=== PATIENT | female | born 1975 | race Asian ===

== ENCOUNTER 2024-07-15 01:34 | Inpatient (IN) | payer MEDICAID, SELFPAY ==
[2024-07-15] VITALS (32 sets, daily range): BP systolic 76–109; BP diastolic 43–78; PULSE 66–111; RESP 9–25; TEMP 36.7–37.1; O2SAT 94–100; BMI 19.2; BMI 20.3
--- NOTE | 2024-07-15 02:34 | XR_ITS ---
Examination: PA chest single view TECHNIQUE: Upright PA chest single view Exam date and time: 11/06/2023 at 0250 hours INDICATIONS: Shortness of breath weakness today. FINDINGS: Normal heart size. Lungs are clear The osseous structures are intact IMPRESSION: No active disease
[2024-07-15 03:19] LABS: Base Excess, Venous -12 (-3-3); O2 Saturation, Venous 69 % (96-97); PCO2, Venous 36 mmHg (36-56); PO2, Venous 42 mmHg (15-58); pH, Venous 7.21 (7.33-7.66)
[2024-07-15 03:27] LABS: Basophils % (Auto) 0 % (0-2.5); Eosinophils % (Auto) 0 % (0-10); Hematocrit 38.6 % (36.0-46.0); Hemoglobin 12.7 g/dL (12.0-16.0); Immature Granulocytes % (Auto) 1 % (0-0); Immature Granulocytes Auto 0.12 Thou/mm3 (0.00-0.00); Lymphocytes # (Auto) 0.7 Thou/mm3 (1.0-4.8); Lymphocytes % (Auto) 4 % (10-50); Mean Corpuscular HGB Conc 32.9 g/dl (31.0-37.0); Mean Corpuscular Hemoglobin 22.2 pg (25.0-35.0); Mean Corpuscular Volume 67 fL (80-100); Monocytes % (Auto) 5 % (0-12); Neutrophils # (Auto) 18.2 Thou/mm3 (1.8-7.7); Neutrophils % (Auto) 91 % (37-80); Nucleated Red Blood Cell % 0 /100 WBC (0); Platelet Count 155 Thou/mm3 (140-440); RDW Standard Deviation 34.8 fL (36.4-46.3); Red Blood Count 5.73 Miln/mm3 (4.00-5.20)
[2024-07-15 03:34] LABS: Collection Type, Urine Clean Catch
[2024-07-15 03:42] LABS: Beta Hydroxybutyrate 6.3 mmol/L (<0.6)
[2024-07-15 03:54] LABS: Partial Thromboplastin Time 25.1 Seconds (22.0-36.0); Prothrombin Time 10.7 Seconds (9.0-12.2)
[2024-07-15 03:56] LABS: HCG Qualitative,Urine Negative
[2024-07-15 03:59] LABS: Bilirubin,Urine Negative (Negative); Blood,Urine Negative (Negative); Clarity,Urine Clear (Clear/Hazy); Color,Urine Lt-Yellow (Lt Yel-Yel); Culture Indicated,Urine Not Indicated; Glucose, Urine 4+ (Negative); Hyaline Casts,Urine 1 /hpf (0-1); Ketones,Urine 4+ (Negative); Leukocyte Esterase,Urine Negative (Negative); Nitrite,Urine Negative (Negative); PH,Urine 5.5 (5.0-7.0); Protein,Urine Negative (Neg - Trace); RBC,Urine 4 /hpf (0-3); Specific Gravity,Urine 1.016 (1.001-1.035); Squamous Epithelial Cell,Urine 2 /hpf (0-5); Urobilinogen,Urine Negative mg/dL (0.0-1.0); WBC,Urine 1 /hpf (0-5)
[2024-07-15 04:12] LABS: Lactate (Lactic Acid) 4.1 mMol/L (0.4-2.0)
[2024-07-15 04:24] LABS: Alanine Aminotransferase 24 U/L (10-49); Albumin, Serum 4.6 gm/dL (3.5-5.0); Albumin/Globulin Ratio 1.3 (1.2-2.2); Alkaline Phosphatase 62 U/L (46-116); Anion Gap 23 (7-16); Aspartate Amino Transferase 45 U/L (0-34); BUN/Creatinine Ratio 17 Ratio (12-20); Bilirubin,Total 1.1 mg/dL (0.3-1.2); Blood Urea Nitrogen 24 mg/dL (9-23); Calcium 9.7 mg/dL (8.3-10.6); Calcium (Corrected) 9.7 mg/dL (8.5-10.1); Chloride 91 mMol/L (98-107); Creatinine (Component) 1.4 mg/dL (0.6-1.3); Estimated Creatinine Clearance 38.6 mL/min (>60); Globulin 3.6 gm/dL (2.3-3.5); Lipase 29 U/L (12-53); Magnesium 2.2 mg/dL (1.6-2.6); Osmolality,Calculated 276 (275-295); Phosphorous 5.3 mg/dL (2.4-5.1); Potassium 5.9 mMol/L (3.4-5.1); Procalcitonin 1.65 ng/ml (0.0-0.49); Sodium 126 mMol/L (136-145); Total Protein 8.2 gm/dL (5.7-8.2); Troponin I < 0.002 ng/mL (0.0-0.045); eGFR 46 See Note
[2024-07-15] MEDS: ONDANSETRON INJ 2 MG/ML INJ 2 ML 4 MG IV (04:25)
[2024-07-15] MEDS: RINGERS LACTATED 1000 ML 1,000 ML 999 ML IV ×2 (04:25→10:09)
[2024-07-15 04:27] LABS: Carbon Dioxide 11.8 mMol/L (20.0-31.0); Glucose 445 mg/dL (74-106)
[2024-07-15] MEDS: RINGERS LACTATED 1000 ML 1,000 ML 500 ML IV (04:36)
[2024-07-15 04:44] LABS: Path Review Blood Smear Sent to Pathologist
--- NOTE | 2024-07-15 05:15 | ESHP_ITS ---
Documentation for date of: 07/15/24 HPI History of Present Illness History of present illness: 49-year-old woman with past medical history of hyperlipidemia, insulin diabetes mellitus type 1, who came to the ED due to chief complaint of hyperglycemia, nausea and vomiting. History was taken per patient at the bedside due to patient speaks laotien. He stated that she has been having hyperglycemia the whole day at home and probably her insulin pump was not functioning well associated to nausea and headache . patient endorsed generalized body pain 10/10 otherwise denied chest pain, cough, fever, dysuria, chills or any other associated symptom different than the mentioned above ED course: Initial vitals: BP 96/58 HR 91 RR 16 afebrile SpO2 99% on room air Pertinent labs: Leukocytosis 20,000, bicarb 11.8 anion gap 23, BUN 24, creatinine 1.4, glucose 445, lactic acid 4.1, beta-hydroxybutyrate 6.3, Pro-Wilbert 1.65, UA positive for ketones and glucose 4+, VBG pH 7.21 pCO2 36 pO2 42 O2 sat 69% base excess -12 Imaging: Chest x-ray no active disease per my interpretation pending official reading At the ED the patient received: IV ED patient received 1.5 L IV fluids, ondansetron, and the patient will be admitted to the ICU for further management of DKA ROS: Headache, generalized bodyaches Past medical history: Hyperlipidemia, DKA type I Past surgical history: Family history: None relevant Social history: Denies cigarette smoking, alcohol use or recreational drugs Travel history: None Allergies: Oyster extract Medications: Atorvastatin, 12 mg p.o. q. night, insulin pump. Review of Systems Review of Systems Systems Reviewed: All systems reviewed, normal except as documented Exam Vital Signs Temp Pulse Resp BP Pulse Ox O2 Del Method 98.0 F 100 17 104/64 100 Room Air 07/15/24 02:40 07/15/24 04:41 07/15/24 04:41 07/15/24 04:41 07/15/24 04:41 07/15/24 04:41 Narrative Exam General: Looks uncomfortable, underweight, alert, interactive, wearing a compress on her head for headache HEENT: NC/AT, PERRL, EOMI, Good conjugate gaze, dry mucous membranes. Neck: Supple, No masses, No adenopathy, carotid pulse 2+ bilaterally without bruits, No JVD, normal range of motion. Chest: Symmetrical, atraumatic, and with equal expansion , Nontender on palpation no deformity and no crepitus. CVS: S1 and S2 present, tachycardic, no murmurs, rubs or gallops perceived during auscultation. Lungs: Normal respiratory effort, CTAB, no wheezing, rhonchi or rales perceived during auscultation, No intercostal or subcostal retraction. Abdomen : Soft, no tenderness to palpation, no guarding ,no rebound, insulin pump tubing in mid abdomen, +BS Extremities: No edema, warm well perfused, normal tone and ROM, strength and sensation intact, cap refill less than 2, +2 dp equal bilaterally, able to move all 4 extremities spontaneously. Skin: Intact, no rashes, no lesions, no erythema or jaundice noted Neuro: AOx4, no focal neurologic deficits noted, GCS 15 Psych: Appropriate mood and affect. Results: Labs 07/15/24 06:10 07/15/24 14:00 Labs: Short CBC 07/15/24 Range/Units 03:10 WBC 20.0 H (3.6-11.0) Thou/mm3 Hgb 12.7 (12.0-16.0) g/dL Hct 38.6 (36.0-46.0) % Plt Count 155 (140-440) Thou/mm3 BMP 07/15/24 03:10 Sodium 126 L Potassium 5.9 H Chloride 91 L Carbon Dioxide 11.8 L* BUN 24 H Creatinine 1.4 H Glucose 445 H* Calcium 9.7 Cardiac Enzymes 07/15/24 Range/Units 03:10 Troponin I < 0.002 (0.0-0.045) ng/mL Liver Function 07/15/24 Range/Units 03:10 Total Bilirubin 1.1 (0.3-1.2) mg/dL AST 45 H (0-34) U/L ALT 24 (10-49) U/L Alkaline Phosphatase 62 (46-116) U/L Albumin 4.6 (3.5-5.0) gm/dL Urine 07/15/24 Range/Units 03:28 Urine Color Lt-Yellow (Lt Yel-Yel) Urine Clarity Clear (Clear/Hazy) Urine pH 5.5 (5.0-7.0) Ur Specific [place] 1.016 (1.001-1.035) Urine Protein Negative (Neg - Trace) Urine Glucose (UA) 4+ A (Negative) ABG Interpretation ABG results: 07/15/24 03:10 VBG pH 7.21 L VBG pCO2 36 VBG pO2 42 VBG Base Excess -12 L Quality Measures Quality Measures VTE prophylaxis Medications Home Medications and Allergies Home Medications ?Medication ?Instructions ?Recorded ?Confirmed ?Type atorvastatin 20 mg tablet 20 mg PO HS HYPERLIPIDEMIA 0 11/06/23 07/15/24 History sitagliptin phosphate 50 mg tablet 50 mg PO QDAY 11/0507/15/24 History (Januvia) Allergies Allergy/AdvReac Type Severity Reaction Status Date / Time oyster extract Allergy Unknown Verified 07/15/24 01:43 Visit Medications Acetaminophen (Acetaminophen 325 Mg Tablet) 650 mg PO Q4HR PRN PRN Reason: PAIN SCALE 1-3 (mild Stop: 08/14/24 04:56 Dextrose (Dextrose 50%-Water Inj 50 Ml Syringe) 25 ml IV PRNMRX1 PRN PRN Reason: Blood Sugar - Low Lactated Ringer's (Lactated Ringers) 1,000 mls @ 500 mls/hr IV .Q2H ONE Stop: 07/15/24 06:28 Last Admin: 07/15/24 04:36 Dose: 500 mls/hr Potassium Chloride (Kcl Ivpb) 10 meq in 100 mls @ 100 mls/hr IV .Q1H PRN PRN Reason: IF POTASSIUM LESS THAN 3.3 Stop: 08/14/24 04:56 Magnesium Sulfate (Magnesium Sulfate Ivpb) 2 gm in 50 mls @ 25 mls/hr IV .Q2H PRN PRN Reason: PER DKA PROTOCOL Stop: 08/14/24 04:56 Insulin Human Regular 100 unit (/ IV Miscellaneous Supplies) 100 mls @ 5.08 mls/hr IV .[id number] PRN; Protocol PRN Reason: PER PROTOCOL Stop: 08/14/24 04:56 Dextrose/Lactated Ringer's (D5-Lr) 1,000 mls @ 250 mls/hr IV .Q4H PRN PRN Reason: PER PROTOCOL Stop: 08/14/24 04:56 Lactated Ringer's (Lactated Ringers) 1,000 mls @ 250 mls/hr IV .Q4H PRN PRN Reason: PER PROTOCOL Stop: 07/16/24 04:56 Potassium Chloride 20 meq/ (Lactated Ringer's) 1,010 mls @ 250 mls/hr IV .Q4H3M PRN PRN Reason: K LEVEL 3.3 TO 5.3mM/L Stop: 08/14/24 04:56 Potassium Chloride 40 meq/ (Lactated Ringer's) 1,020 mls @ 250 mls/hr IV .Q4H5M PRN PRN Reason: K LEVEL < 3.3 mM/L Stop: 08/14/24 04:56 Potassium Chloride 40 meq/ (Dextrose/Lactated Ringer's) 1,020 mls @ 250 mls/hr IV .Q4H5M PRN PRN Reason: K LEVEL < 3.3mM/L Stop: 08/14/24 04:56 Potassium Cl/Dextrose/Lact Ringer's (Kcl 20 Meq/L In D5-Lr) 20 meq in 1,000 mls @ 250 mls/hr IV .Q4H PRN PRN Reason: K LEVEL 3.3 TO 5.3 mM/L Stop: 08/14/24 04:56 Potassium Chloride (Kcl Ivpb) 10 meq in 100 mls @ 50 mls/hr IV PRN PRN PRN Reason: K LEVEL 3.3 to 5.3 & BG > 200 Stop: 08/14/24 04:56 Potassium Phosphate (Pot Phos 15 Mmol In Ns 250 Ml) 15 mmol in 250 mls @ 62.5 mls/hr IV PRN PRN PRN Reason: Phosphate <= 1mg/dL Stop: 08/14/24 04:56 Lactated Ringer's (Lactated Ringers) 1,000 mls @ 1,000 mls/hr IV Q1H ANDREW Stop: 07/15/24 07:14 Sodium Phosphate 15 mmol/ (Sodium Chloride) 255 mls @ 62.5 mls/hr IV .Q4H5M PRN PRN Reason: Phosphate <= 1mg/dL and K> than 5.3 Stop: 08/14/24 04:56 Sodium Bicarbonate (Sodium Bicarb Inj 8.4% Syr 50 Ml Syringe) 50 ml IV Q4HR PRN PRN Reason: For ph <= to 7.0 Stop: 08/14/24 04:56 Discontinued Medications Lactated Ringer's (Lactated Ringers) 1,000 mls @ 999 mls/hr IV .Q1H1M ONE Stop: 07/15/24 03:35 Last Admin: 07/15/24 04:25 Dose: 999 mls/hr Lactated Ringer's (Lactated Ringers) 500 mls @ 999 mls/hr IV .Q31M ONE Stop: 07/15/24 03:12 Last Admin: 07/15/24 04:30 Dose: Not Given Insulin Human Regular (Insulin Hum Regular 1 Unit/0.01 Ml (Per Unit)) 5.1 unit 0.1 unit/kg (5.1 unit) IV X1 ONE Stop: 07/15/24 04:58 Ondansetron HCl (Ondansetron Inj 2 Mg/Ml Inj 2 Ml) 4 mg IV X1 ONE; Protocol Stop: 07/15/24 02:45 Last Admin: 07/15/24 04:25 Dose: 4 mg Assessment & Plan Plan 49-year-old woman with past medical history of hyperlipidemia, insulin diabetes mellitus type 1, who came to the ED due to chief complaint of hyperglycemia, nausea and vomiting. Per patient at the bedside stated that she has been having hyperglycemia the whole day at home and probably her insulin pump was not functioning well. Patient endorsed generalized pain 10/10 and headache, otherwise denied chest pain, cough, fever, dysuria or any other associated symptom different than the mentioned above ED course: Initial vitals: BP 96/58 HR 91 RR 16 afebrile SpO2 99% on room air Pertinent labs: Leukocytosis 20,000, bicarb 11.8 anion gap 23, BUN 24, creatinine 1.4, glucose 445, lactic acid 4.1, beta-hydroxybutyrate 6.3, Pro-Wilbert 1.65, UA positive for ketones and glucose 4+, VBG pH 7.21 pCO2 36 pO2 42 O2 sat 69% base excess -12 Imaging: Chest x-ray no active disease per my interpretation pending official reading At the ED the patient received: IV ED patient received 1.5 L IV fluids, ondansetron, and the patient will be admitted to the ICU for further management of DKA [employer] DIRECTOR: Stable CVS: #Sinus tachycardia #Hypotension Secondary to dehydration in the setting of DKA, less likely sepsis due to patient denies fever, urinary symptoms shortness of breath or cough and has been afebrile MAP above 65 ? Per DKA protocol aggressive IV fluid resuscitation PULM: Stable GI: #Nausea Secondary to DKA ? Ondansetron IV every 6 hours as needed for nausea and vomiting #History of hyperlipidemia ? Continue home medications atorvastatin 20 g p.o. every night when reconciled RENAL: #Anion gap metabolic acidosis #JAMES #Electrolyte imbalance Secondary to DKA in the setting of insulin pump malfunction Prerenal azotemia secondary to dehydration in the setting of DKA Anion gap 23 VBG pH 7.21 pCO2 36 pO2 42 O2 sat 69% base excess -12 Creatinine 1.4 BUN 24 ? Insulin gtt. per DKA protocol ? IV fluids per DKA protocol ? Strict ins and outs ? Avoid nephrotoxic drugs ? Renally dose medications ? Follow-up Renal panel #Lactic acidosis Most likely secondary to DKA Lactic acid 4.1 ? IV fluids per DKA protocol ? Trend lactic acid ENDO: #DKA #Diabetes mellitus type 1 Patient has been endorsed that she was hyperglycemic in the whole day and that probably her insulin pump was not working properly Blood sugars 445 BHB 6.3, Anion gap 23 VBGpH 7.21 pCO2 36 pO2 42 O2 sat 69% base excess -12 At the ED patient received 1.5 L bolus ? Insulin gtt. per DKA protocol ? IV fluids per DKA protocol ? Renal panel every 4 hours per DKA protocol HEME/ONC: #Leukocytosis Most likely reactive in the setting of DKA ? Follow-up CBC and CMP ? Blood cultures pending ID: Stable MSK: Stable SKIN: Stable FEN: N.p.o. Lines: Peripheral DVT prophylaxis: Heparin GI prophylaxis: None CODE STATUS: Full code Patient discussed with my attending Dr Matthew Cortes MD PGY-3 Disclaimer: Despite multiple revisions, due to the dictation software being used, the document bellow may not be free of grammatical errors including phonetic/typographic errors. However, this does not deter from our commitment to providing health care in the patient's best interest in mind. Attending Provider Attestation/Addendum I have examined the patient, reviewed labs and imaging findings, discussed the case with the resident(s), and reviewed entered orders. I agree with the plan of care as outlined in this note, with these additional summaries/recommendations: 49-year-old female with past medical history of diabetes presents to the ED with chief complaint of nausea vomiting and hyperglycemia found to have DKA. Patient admitted to ICU for further management. Mati Castro MD
[2024-07-15] MEDS: INSULIN REG 100 UNITS/100 ML 100 UNIT in PRE-MIXED 1 BAG 5.08 UNIT IV (05:25)
[2024-07-15] MEDS: INSULIN HUM REGULAR 1 UNIT/0.01 ML (PER UNIT) 5.1 UNIT IV (05:27)
[2024-07-15] MEDS: HYDROcodone/APAP 5/325 TABLET 1 TAB PO (05:37)
[2024-07-15] MEDS: RINGERS LACTATED 1000 ML 1,000 ML IV ×2 (05:41→07:31)
[2024-07-15 06:16] LABS: Reflex Lactate? Y
--- NOTE | 2024-07-15 06:16 | EDNOTE_ITS ---
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 Some CP that resolved prior to arrival in ED. No SOB or URI symptoms. No fevers/chills. 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,cont #1 ea 11/07/23 (FreeStyle Romi 3 [place]) insulin glargine 100 unit/mL (3 10 unit (0.1 mL) subcu t QPM #15 mL 11/08/23 mL) subcutaneous pen (Lantus Solostar U-100 Insulin) insulin lispro 100 unit/mL 5 unit (0.05 mL) subcut TID WM 30 11/08/23 subcutaneous pen (Humalog KwikPen days #15 mL (U-100) Insulin) pen needle, diabetic, safety 32 #100 ea 11/08/23 gauge x 5/32 Allergies Allergy/AdvReac Type Severity Reaction Status Date / Time oyster extract Allergy Unknown Verified 07/15/24 01:43 Review of Systems Review of Systems Systems Reviewed: All systems reviewed, normal except as documented Constitutional Constitutional: Reports system reviewed and no additional complaints, except as documented, Reports as per HPI, Denies fever(s), Denies headache(s) and Reports weakness ENT Ears, Nose, Mouth, and Throat: Denies disequilibrium and Denies headache(s) Cardiovascular Cardiovascular: Reports system reviewed and no additional complaints, except as documented, Denies chest pain and Denies dyspnea Respiratory Respiratory: Reports system reviewed and no additional complaints, except as documented, Denies cough and Denies dyspnea Gastrointestinal Gastrointestinal: Reports system reviewed and no additional complaints, except as documented, Reports as per HPI, Denies abdominal pain, Reports nausea and Reports vomiting Neurologic Neurologic: Reports system reviewed and no additional complaints, except as documented, Denies confusion, Denies disequilibrium, Denies headache(s) and Reports weakness Psychiatric Psychiatric: Denies confusion Past Medical History Past Medical History CARDIAC: Positive Hypercholesterolemia; Negative Congestive Heart Failure RESPIRATORY: Negative Chronic Obstructive Pulmonary Disease (COPD) GENITOURINARY: Negative Renal Disease ENDOCRINE: Positive Diabetes Mellitus Type 1; Negative Diabetes Mellitus Type 2 (dm TYPE1) Social History SMOKING STATUS: Never smoker ED Exam General Limitations: Present no limitations General appearance: Present alert and in no apparent distress Head Head exam: Present atraumatic Eye Eye exam: Present normal appearance, PERRL and EOMI ENT ENT exam: Present normal exam, normal oropharynx and mucous membranes moist Neck Neck exam: Present normal inspection, full ROM and trachea midline Chest Chest inspection: Present normal inspection and symmetric chest wall rise Respiratory Respiratory exam: Present normal lung sounds bilaterally Cardiovascular Cardiovascular exam: Present regular rate, normal rhythm and normal heart sounds Abdominal Exam Abdominal exam: Present soft and normal bowel sounds Extremities Exam Extremities exam: Present normal inspection and full ROM Back Exam Back exam: Present normal inspection and full ROM Neurological Exam Neurological exam: Present alert, oriented X3 and CN II-XII intact Psychiatric Psychiatric exam: Present normal affect and normal mood Skin Skin exam: Present warm, dry, intact and normal color Course Quality Measures none Orders Category Date Time Status Blood glucose [Bedside Blood Glucose] NOW Care 07/15/24 01:46 Active COVID-19 Screening Questionnaire NOW Care 07/15/24 04:32 Active Decision to Admit X1 Care 07/15/24 04:32 Completed EKG (ED ONLY) *Do not use* NOW Care 07/15/24 02:34 Completed Insert IV NOW Care 07/15/24 02:35 Active EKG (ED Only) Stat Exams 07/15/24 02:34 Ordered XR chest 1V portable Stat Exams 07/15/24 02:34 Taken Beta Hydroxybutyrate Stat Lab 07/15/24 03:10 Completed Blood Culture (Lab) Stat Lab 07/15/24 03:10 Received CBC Stat Lab 07/15/24 03:10 Completed Comprehensive Metabolic Panel Stat Lab 07/15/24 03:10 Completed HCG Qualitative,Urine Stat Lab 07/15/24 03:28 Completed Lactate (Lactic Acid) Stat Lab 07/15/24 03:10 Completed Lipase Stat Lab 07/15/24 03:10 Completed Magnesium Stat Lab 07/15/24 03:10 Completed Partial Thromboplastin Time Stat Lab 07/15/24 03:10 Completed Path Review Blood Smear Stat Lab 07/15/24 03:10 Completed Phosphorous Stat Lab 07/15/24 03:10 Completed Procalcitonin Stat Lab 07/15/24 03:10 Completed Prothrombin Time with INR Stat Lab 07/15/24 03:10 Completed Troponin I Stat Lab 07/15/24 03:10 Completed Urinalysis, C/S if Indicated Stat Lab 07/15/24 03:28 Completed VBG [Venous Blood Gas] Stat Lab 07/15/24 03:10 Completed Ondansetron Inj [Zofran Inj] Med 07/15/24 02:44 Discontinued 4 mg IV X1 ONE Ringers Lactated 1000 ml [Lactated Ringers] 1,000 ml Med 07/15/24 04:29 Active IV 500 mls/hr Ringers Lactated 1000 ml [Lactated Ringers] 1,000 ml Med 07/15/24 02:35 D iscontinued IV 999 mls/hr Ringers Lactated 500 ml [Lactated Ringers] 500 ml Med 07/15/24 02:42 Discontinued IV 999 mls/hr Vital Signs Vital signs: Vital Signs Temperature 98.0 F 07/15/24 02:40 Pulse Rate 91 07/15/24 02:40 Respiratory Rate 16 07/15/24 02:40 Blood Pressure 96/58 L 07/15/24 02:40 Pulse Oximetry (%) 99 07/15/24 02:40 Oxygen Delivery Method Room Air 07/15/24 02:40 LO2 at 99% on RA and WNLs Recheck / Abnormal Lab / Rx MDM Narrative MDM Narrative:: 49F with history of DM presents to ED with 2 days of generalized weakness and N/V. Some CP that resolved prior to arrival in ED. No SOB or URI symptoms. No fevers/chills. Physical exam reveals no ab tenderness. Patient is afebrile, calm, and alert, but does appear fatigued. EKG is NSR. Wet CXR read unremarkable pending official read. Beta 6.3, V[facility] pH low. Elevated anion gap. Trop normal. Lactate elevated, procal mildly elevated. Unlikely infectious source; more likely due to DKA. 20k WBC. Spoke to ICU resident reporting to Dr. Montaño, who accepts patient. Patient data External records reviewed:: [facility] previous records Clinical information provided by:: patient Social determinants that could affect healthcare access:: none Patient has the following chronic illnesses:: DM How is presenting disease/condition affected by chronic disease/condition?: exacerbated by Evaluation data The following diagnostics were reviewed and interpreted by me:: lab results, radiology exam(s) and EKG tracing(s) Lab and/or radiology exams considered but not ordered:: ordered Interpretation Summary: above Medications / Prescriptions Medications or Prescriptions considered but not ordered:: ordered Medication administrations:: Medication Administration History Acetaminophen (Acetaminophen 325 Mg Tablet) 650 mg PO Q4HR PRN PRN Reason: PAIN SCALE 1-3 (mild Stop: 08/14/24 04:56 Hydrocodone Bitart/Acetaminophen (Hydrocodone/Apap 5/325 Tablet) 1 tab PO Q6HR PRN PRN Reason: PAIN SCALE 4-10(Mod-Sev Stop: 07/20/24 05:23 Last Admin: 07/15/24 05:37 Dose: 1 tab Documented By: JANAY Dextrose (Dextrose 50%-Water Inj 50 Ml Syringe) 25 ml IV PRNMRX1 PRN PRN Reason: Blood Sugar - Low Heparin Sodium (Porcine) (Heparin Sod Inj 5000 Unit/Ml Vial) 5,000 unit SC Q8HR ANDREW Stop: 07/29/24 05:59 Lactated Ringer's (Lactated Ringers) 1,000 mls @ 500 mls/hr IV .Q2H ONE Stop: 07/15/24 06:28 Last Admin: 07/15/24 04:36 Dose: 500 mls/hr Documented By: JANAY Potassium Chloride (Kcl Ivpb) 10 meq in 100 mls @ 100 mls/hr IV .Q1H PRN PRN Reason: IF POTASSIUM LESS THAN 3.3 Stop: 08/14/24 04:56 Magnesium Sulfate (Magnesium Sulfate Ivpb) 2 gm in 50 mls @ 25 mls/hr IV .Q2H PRN PRN Reason: PER DKA PROTOCOL Stop: 08/14/24 04:56 Insulin Human Regular 100 unit (/ IV Miscellaneous Supplies) 100 mls @ 5.08 mls/hr IV .[id number] PRN; Protocol PRN Reason: PER PROTOCOL Stop: 08/14/24 04:56 Last Admin: 07/15/24 05:25 Dose: 0.1 unit/kg/hr, 5.08 mls/hr Documented By: JANAY Co-signed By: ASHWIN Dextrose/Lactated Ringer's (D5-Lr) 1,000 mls @ 250 mls/hr IV .Q4H PRN PRN Reason: PER PROTOCOL Stop: 08/14/24 04:56 Lactated Ringer's (Lactated Ringers) 1,000 mls @ 250 mls/hr IV .Q4H PRN PRN Reason: PER PROTOCOL Stop: 07/16/24 04:56 Potassium Chloride 20 meq/ (Lactated Ringer's) 1,010 mls @ 250 mls/hr IV .Q4H3M PRN PRN Reason: K LEVEL 3.3 TO 5.3mM/L Stop: 08/14/24 04:56 Potassium Chloride 40 meq/ (Lactated Ringer's) 1,020 mls @ 250 mls/hr IV .Q4H5M PRN PRN Reason: K LEVEL < 3.3 mM/L Stop: 08/14/24 04:56 Potassium Chloride 40 meq/ (Dextrose/Lactated Ringer's) 1,020 mls @ 250 mls/hr IV .Q4H5M PRN PRN Reason: K LEVEL < 3.3mM/L Stop: 08/14/24 04:56 Potassium Cl/Dextrose/Lact Ringer's (Kcl 20 Meq/L In D5-Lr) 20 meq in 1,000 mls @ 250 mls/hr IV .Q4H PRN PRN Reason: K LEVEL 3.3 TO 5.3 mM/L Stop: 08/14/24 04:56 Potassium Chloride (Kcl Ivpb) 10 meq in 100 mls @ 50 mls/hr IV PRN PRN PRN Reason: K LEVEL 3.3 to 5.3 & BG > 200 Stop: 08/14/24 04:56 Potassium Phosphate (Pot Phos 15 Mmol In Ns 250 Ml) 15 mmol in 250 mls @ 62.5 mls/hr IV PRN PRN PRN Reason: Phosphate <= 1mg/dL Stop: 08/14/24 04:56 Lactated Ringer's (Lactated Ringers) 1,000 mls @ 1,000 mls/hr IV Q1H ANDREW Stop: 07/15/24 07:14 Last Admin: 07/15/24 05:41 Dose: 1,000 mls/hr Documented By: JANAY Sodium Phosphate 15 mmol/ (Sodium Chloride) 255 mls @ 62.5 mls/hr IV .Q4H5M PRN PRN Reason: Phosphate <= 1mg/dL and K> than 5.3 Stop: 08/14/24 04:56 Morphine Sulfate (Morphine Sulf Inj 10 Mg/Ml Vial) 1 mg IVP Q4HR PRN PRN Reason: PAIN SCALE 7-10 (Severe Stop: 07/20/24 06:17 Ondansetron HCl (Ondansetron Inj 2 Mg/Ml Inj 2 Ml) 4 mg IVP Q6HR PRN; Protocol PRN Reason: NAUSEA OR VOMITING Stop: 08/14/24 05:11 Sodium Bicarbonate (Sodium Bicarb Inj 8.4% Syr 50 Ml Syringe) 50 ml IV Q4HR PRN PRN Reason: For ph <= to 7.0 Stop: 08/14/24 04:56 Discontinued Medications Lactated Ringer's (Lactated Ringers) 1,000 mls @ 999 mls/hr IV .Q1H1M ONE Stop: 07/15/24 03:35 Last Infusion: 07/15/24 05:31 Dose: Infused Documented By: Admin: 07/15/24 04:25 Dose: 999 mls/hr Documented By: JANAY Lactated Ringer's (Lactated Ringers) 500 mls @ 999 mls/hr IV .Q31M ONE Stop: 07/15/24 03:12 Last Admin: 07/15/24 04:30 Dose: Not Given Documented By: JANAY Non-Admin Reason: Cancelled by Provider Insulin Human Regular (Insulin Hum Regular 1 Unit/0.01 Ml (Per Unit)) 5.1 unit 0.1 unit/kg (5.1 unit) IV X1 ONE Stop: 07/15/24 04:58 Last Admin: 07/15/24 05:27 Dose: 5.1 unit Documented By: JANAY Co-signed By: ASHWIN Ondansetron HCl (Ondansetron Inj 2 Mg/Ml Inj 2 Ml) 4 mg IV X1 ONE; Protocol Stop: 07/15/24 02:45 Last Admin: 07/15/24 04:25 Dose: 4 mg Documented By: MC above Consultations Consultation(s) initiated? (list below): Yes Diagnosis Recheck Differential Diagnosis: encounter for medication refill, encounter for wound recheck, encounter for recheck of burn, encounter for removal of sutures, warfarin-induced coagulopathy and other (DKA) Most likely diagnosis given after review of the tests above:: DKA Admission Indicated Admission indicated?: indicated Admission Request Was there a request for admission?: Yes Admission Attestation Admission request attestation: Discussed case with [] from Hospitalist service regarding admission. Discussed patients ED course, exam findings, labs, and radiology results. The Hospitalist [agrees] to accept the patient for admission. Disposition Plan Disposition Plan: Admit Discharge Plan Plan Patient Disposition: Admit Acute Care w/in Hospital Problem List Clinical Impression: DKA (diabetic ketoacidosis)
[2024-07-15 06:40] LABS: Basophils % (Auto) 0 % (0-2.5); Eosinophils % (Auto) 0 % (0-10); Hematocrit 28.3 % (36.0-46.0); Hemoglobin 9.7 g/dL (12.0-16.0); Immature Granulocytes % (Auto) 1 % (0-0); Immature Granulocytes Auto 0.11 Thou/mm3 (0.00-0.00); Lymphocytes # (Auto) 0.6 Thou/mm3 (1.0-4.8); Lymphocytes % (Auto) 3 % (10-50); Mean Corpuscular HGB Conc 34.3 g/dl (31.0-37.0); Mean Corpuscular Hemoglobin 22.8 pg (25.0-35.0); Mean Corpuscular Volume 67 fL (80-100); Monocytes # (Auto) 0.7 Thou/mm3 (0.0-0.8); Monocytes % (Auto) 4 % (0-12); Neutrophils # (Auto) 16.6 Thou/mm3 (1.8-7.7); Neutrophils % (Auto) 92 % (37-80); Nucleated Red Blood Cell % 0 /100 WBC (0); Platelet Count 136 Thou/mm3 (140-440); RDW Standard Deviation 34.9 fL (36.4-46.3); Red Blood Count 4.25 Miln/mm3 (4.00-5.20)
[2024-07-15 06:43] LABS: Lactic Acid, 3 HR 5.8 mMol/L (0.4-2.0)
[2024-07-15 07:06] LABS: Albumin, Serum 3.4 gm/dL (3.5-5.0); Anion Gap 23 (7-16); BUN/Creatinine Ratio 21 Ratio (12-20); Blood Urea Nitrogen 25 mg/dL (9-23); Calcium 8.6 mg/dL (8.3-10.6); Calcium (Corrected) 9.1 mg/dL (8.5-10.1); Chloride 97 mMol/L (98-107); Creatinine (Component) 1.2 mg/dL (0.6-1.3); Magnesium 1.7 mg/dL (1.6-2.6); Osmolality,Calculated 282 (275-295); Phosphorous 4.3 mg/dL (2.4-5.1); Potassium 4.2 mMol/L (3.4-5.1); Sodium 130 mMol/L (136-145); eGFR 55 See Note
[2024-07-15 07:10] LABS: Carbon Dioxide < 10.0 mMol/L (20.0-31.0); Glucose 401 mg/dL (74-106)
[2024-07-15] MEDS: POTASSIUM CHL 10 mEq IVPB 10 MEQ/100 ML BAG 50 MEQ IV (07:31)
[2024-07-15] MEDS: RINGERS LACTATED 1000 ML 1,000 ML 250 ML IV (07:31)
[2024-07-15] MEDS: Magnesium Sulfate 2 GM Ivpb 2 GM/50 ML BAG IV (07:47)
[2024-07-15] MEDS: POT CHL ADDITIVE 20 MEQ in RINGERS LACTATED 1000 ML 1,000 ML 250 MEQ IV ×2 (08:45→12:28)
[2024-07-15 10:27] LABS: Base Excess -5 (-3-3); HCO3 20 mEq/L (20-26); Inspired Oxygen, FIO2 21 %; O2 Saturation 97 % (91-98); PCO2 34 mmHg (32.0-48.0); PO2 90 mmHg (83-108); pH, Arterial 7.38 (7.35-7.45)
[2024-07-15 10:28] LABS: Allen Test Performed/OK; Puncture Site Right Radial
[2024-07-15 10:51] LABS: Albumin, Serum 3.3 gm/dL (3.5-5.0); Anion Gap 10 (7-16); BUN/Creatinine Ratio 16 Ratio (12-20); Blood Urea Nitrogen 19 mg/dL (9-23); Calcium 8.5 mg/dL (8.3-10.6); Calcium (Corrected) 9.1 mg/dL (8.5-10.1); Carbon Dioxide 20.6 mMol/L (20.0-31.0); Chloride 104 mMol/L (98-107); Creatinine (Component) 1.2 mg/dL (0.6-1.3); Estimated Creatinine Clearance 47.8 mL/min (>60); Glucose 258 mg/dL (74-106); Magnesium 2.2 mg/dL (1.6-2.6); Osmolality,Calculated 281 (275-295); Phosphorous 2.4 mg/dL (2.4-5.1); Potassium 4.6 mMol/L (3.4-5.1); Sodium 135 mMol/L (136-145); eGFR 55 See Note
--- NOTE | 2024-07-15 11:18 | PD.RESPRO ---
Documentation for date of: 07/15/24 Subjective Subjective Interval history: 49-year-old [place] speaking woman, with past medical history of hyperlipidemia, insulin diabetes mellitus type 1, who came to the ED due to chief complaint of hyperglycemia, nausea and vomiting. History was taken per patient at the bedside due to patient speaks laotien. He stated that she has been having hyperglycemia the whole day at home and probably her insulin pump was not functioning well associated to nausea and headache . patient endorsed generalized body pain 10/10 otherwise denied chest pain, cough, fever, dysuria, chills or any other associated symptom different than the mentioned above. She was diagnoses with type 1 diabetes 13 years ago and has had three ICU admissions in the past for DKA. ED course: Initial vitals: BP 96/58 HR 91 RR 16 afebrile SpO2 99% on room air Pertinent labs: Leukocytosis 20,000, bicarb 11.8 anion gap 23, BUN 24, creatinine 1.4, glucose 445, lactic acid 4.1, beta-hydroxybutyrate 6.3, Pro-Wilbert 1.65, UA positive for ketones and glucose 4+, VBG pH 7.21 pCO2 36 pO2 42 O2 sat 69% base excess -12 Imaging: Chest x-ray no active disease per my interpretation pending official reading At the ED the patient received: 2 L IV fluids, ondansetron, and the patient will be admitted to the ICU for further management of DKA 07/15/2024: No events overnight. Patient is [place] speaking and interaction facilitated by registered healthcare infection control rn. Patient complains of nausea, denies any vomiting, abdominal pain, cough, dysuria. WBC 18, Hb 9.7, HCT 28.3, MCV 67, PLT 136, lactic acid 5.8?>2, bicarb decreased from 11.8 to <10, corrected sodium 137, anion gap 23, Pro-Wilbert 1.6. Blood cultures pending. Chest x-ray showed no signs of consolidation, pleural effusion or pulmonary edema. Currently patient on insulin infusion, DKA protocol. Will give 1L lactated Ringer's IVF bolus for lactic acidosis, ABG ordered, HbEP, iron panel, Urine electrolytes and MRSA screen. Exam Vital Signs Temp Pulse Resp BP Pulse Ox O2 Del Method 98.4 F 81 22 H 89/47 L 96 Room Air 07/15/24 08:00 07/15/24 11:00 07/15/24 11:00 07/15/24 11:00 07/15/24 11:00 07/15/24 05:47 Narrative Exam Constitutional Alert, oriented x 3 and comfortable. Middle-age female, appears young for her age. Lungs speaking. Mucous membranes pink and moist. HEENT Vision grossly intact. Patent nares. Trachea midline. Bilateral carotid pulses palpated. Poor nutrition Respiratory Chest normal on inspection and clear auscultation bilaterally on anterior and posterior chest Cardiovascular S1 and S2 audible, RRR. No murmurs carotid bruit. No gross JVD.. Cap refill <2 sec Abdominal Soft and non tender to palpation in all quadrants. BS +, insulin pump port noted left lower abdomen Genitourinary No bladder tenderness, no flank pain. Normal to palpation Musculoskeletal Extremities tone within normal limits. No LE edema. Dorsalis pedis pulses palpated bilaterally 2+, Dexcom sensor right tricep. No mottling Neurological CN II - XII grossly intact. Extremity motor and sensation grossly intact. GCS 15/15 Skin Warm, dry and intact. No apparent lesions. Psychiatric Patient has good affect, is cooperative Objective Labs 07/15/24 06:10 07/15/24 10:10 Labs: Laboratory Results - last 24 hr 07/15/24 07/15/24 07/15/24 03:10 03:28 06:10 WBC 20.0 H 18.0 H RBC 5.73 H 4.25 Hgb 12.7 9.7 L D Hct 38.6 28.3 L D MCV 67 L 67 L MCH 22.2 L 22.8 L MCHC 32.9 34.3 RDW Std Deviation 34.8 L 34.9 L Plt Count 155 136 L Neut % (Auto) 91 H 92 H Lymph % (Auto) 4 L 3 L [place] % (Auto) 5 4 Eos % (Auto) 0 0 Baso % (Auto) 0 0 Neut # (Auto) 18.2 H 16.6 H Lymph # (Auto) 0.7 L 0.6 L [place] # (Auto) 1.0 H 0.7 Eos # (Auto) 0.0 0.0 Baso # (Auto) 0.0 0.0 Immature Gran # (Auto) 0.12 H 0.11 H Absolute Nucleated RBC 0.00 0.00 Immature Gran % 1 H 1 H Nucleated RBC % 0 0 Smear Path Review Sent to Pathologist PT 10.7 INR 1.0 APTT 25.1 Puncture Site ABG pH ABG pCO2 ABG pO2 ABG HCO3 ABG O2 Saturation ABG Base Excess VBG pH 7.21 L VBG pCO2 36 VBG pO2 42 VBG O2 Sat (Maryuri) 69 L VBG Base Excess -12 L FiO2 Sodium 126 L 130 L Potassium 5.9 H 4.2 D Chloride 91 L 97 L Carbon Dioxide 11.8 L* < 10.0 L* Anion Gap 23 H 23 H BUN 24 H 25 H Creatinine 1.4 H 1.2 Estim Creat Clear Calc 38.6 L 45.0 L eGFR 46 L 55 L BUN/Creatinine Ratio 17 21 H Glucose 445 H* 401 H* Calculated Osmolality 276 282 Lactic Acid 4.1 H* 5.8 H* Calcium 9.7 8.6 Corrected Calcium 9.7 9.1 Phosphorus 5.3 H 4.3 Magnesium 2.2 1.7 Total Bilirubin 1.1 AST 45 H ALT 24 Alkaline Phosphatase 62 Troponin I < 0.002 Total Protein 8.2 Albumin 4.6 3.4 L D Globulin 3.6 H Albumin/Globulin Ratio 1.3 Lipase 29 Beta-Hydroxybutyrate/Acetoacetate 6.3 H Procalcitonin 1.65 H Ur Collection Type Clean Catch Urine Color Lt-Yellow Urine Clarity Clear Urine pH 5.5 Ur Specific [place] 1.016 Urine Protein Negative Urine Glucose (UA) 4+ A Urine Ketones 4+ A Urine Blood Negative Urine Nitrite Negative Urine Bilirubin Negative Urine Urobilinogen (Auto) Negative Ur Leukocyte Esterase Negative Urine RBC 4 H Urine WBC 1 Ur Squamous Epith Cells 2 Urine Bacteria None Hyaline Casts 1 Ur Culture Indicated? Not Indicated Urine HCG, Qual Negative 07/15/24 07/15/24 10:10 10:18 WBC RBC Hgb Hct MCV MCH MCHC RDW Std Deviation Plt Count Neut % (Auto) Lymph % (Auto) [place] % (Auto) Eos % (Auto) Baso % (Auto) Neut # (Auto) Lymph # (Auto) [place] # (Auto) Eos # (Auto) Baso # (Auto) Immature Gran # (Auto) Absolute Nucleated RBC Immature Gran % Nucleated RBC % Smear Path Review PT INR APTT Puncture Site Right Radial ABG pH 7.38 ABG pCO2 34 ABG pO2 90 ABG HCO3 20 ABG O2 Saturation 97 ABG Base Excess -5 L VBG pH VBG pCO2 VBG pO2 VBG O2 Sat (Maryuri) VBG Base Excess FiO2 21 Sodium 135 L Potassium 4.6 Chloride 104 Carbon Dioxide 20.6 Anion Gap 10 BUN 19 Creatinine 1.2 Estim Creat Clear Calc 47.8 L eGFR 55 L BUN/Creatinine Ratio 16 Glucose 258 H D Calculated Osmolality 281 Lactic Acid 2.0 Calcium 8.5 Corrected Calcium 9.1 Phosphorus 2.4 Magnesium 2.2 Total Bilirubin AST ALT Alkaline Phosphatase Troponin I Total Protein Albumin 3.3 L Globulin Albumin/Globulin Ratio Lipase Beta-Hydroxybutyrate/Acetoacetate Procalcitonin Ur Collection Type Urine Color Urine Clarity Urine pH Ur Specific [place] Urine Protein Urine Glucose (UA) Urine Ketones Urine Blood Urine Nitrite Urine Bilirubin Urine Urobilinogen (Auto) Ur Leukocyte Esterase Urine RBC Urine WBC Ur Squamous Epith Cells Urine Bacteria Hyaline Casts Ur Culture Indicated? Urine HCG, Qual ABG Interpretation ABG results: 07/15/24 07/15/24 03:10 10:18 ABG pH 7.38 ABG pCO2 34 ABG pO2 90 ABG HCO3 20 ABG O2 Saturation 97 ABG Base Excess -5 L VBG pH 7.21 L VBG pCO2 36 VBG pO2 42 VBG Base Excess -12 L Quality Measures Quality Measures VTE prophylaxis Assessment & Plan Assessment Current Active Medications: Generic Name Dose Route Start Last Admin Trade Name Freq PRN Reason Stop Dose Admin Acetaminophen 650 mg 07/15/24 04:57 Acetaminophen 325 Mg Tablet PO 08/14/24 04:56 Q4HR PRN PAIN SCALE 1-3 (mild Hydrocodone Bitart/Acetaminophen 1 tab 07/15/24 05:24 07/15/24 05:37 Hydrocodone/Apap 5/325 Tablet PO 07/20/24 05:23 1 tab Q6HR PRN Administration PAIN SCALE 4-10(Mod-Sev Protocol Dextrose 25 ml 07/15/24 04:57 Dextrose 50%-Water Inj 50 Ml Syringe IV [id number] PRN Blood Sugar - Low Enoxaparin Sodium 40 mg 07/16/24 09:00 Enoxaparin Sod Inj 40 Mg/0.4 Ml Syringe SC 07/30/24 08:59 QDAY ANDREW Potassium Chloride 10 meq in 100 mls @ 100 mls/hr 07/15/24 04:57 Kcl Ivpb IV 08/14/24 04:56 .Q1H PRN IF POTASSIUM LESS THAN 3.3 Magnesium Sulfate 2 gm in 50 mls @ 25 mls/hr 07/15/24 04:57 07/15/24 07:47 Magnesium Sulfate Ivpb IV 08/14/24 04:56 25 mls/hr .Q2H PRN Administration PER DKA PROTOCOL Insulin Human Regular 100 unit 100 mls @ 5.08 mls/hr 07/15/24 04:57 07/15/24 08:00 / IV Miscellaneous Supplies IV 08/14/24 04:56 0.1 unit/kg/hr .[id number] PRN 5.08 mls/hr PER PROTOCOL Titration Protocol 0.1 UNIT/KG/HR Dextrose/Lactated Ringer's 1,000 mls @ 250 mls/hr 07/15/24 04:57 D5-Lr IV 08/14/24 04:56 .Q4H PRN PER PROTOCOL Lactated Ringer's 1,000 mls @ 250 mls/hr 07/15/24 04:57 07/15/24 08:46 Lactated Ringers IV 07/16/24 04:56 0 mls/hr .Q4H PRN Infusion PER PROTOCOL Potassium Chloride 20 meq/ 1,010 mls @ 250 mls/hr 07/15/24 04:57 07/15/24 08:45 Lactated Ringer's IV 08/14/24 04:56 250 mls/hr .Q4H3M PRN Administration K LEVEL 3.3 TO 5.3mM/L Potassium Chloride 40 meq/ 1,020 mls @ 250 mls/hr 07/15/24 04:57 Lactated Ringer's IV 08/14/24 04:56 .Q4H5M PRN K LEVEL < 3.3 mM/L Potassium Chloride 40 meq/ 1,020 mls @ 250 mls/hr 07/15/24 04:57 Dextrose/Lactated Ringer's IV 08/14/24 04:56 .Q4H5M PRN K LEVEL < 3.3mM/L Potassium Cl/Dextrose/Lact Ringer's 20 meq in 1,000 mls @ 250 mls/hr 07/15/24 04:57 Kcl 20 Meq/L In D5-Lr IV 08/14/24 04:56 .Q4H PRN K LEVEL 3.3 TO 5.3 mM/L Potassium Chloride 10 meq in 100 mls @ 50 mls/hr 07/15/24 04:57 07/15/24 08:45 Kcl Ivpb IV 08/14/24 04:56 0 mls/hr PRN PRN Infusion K LEVEL 3.3 to 5.3 & BG > 200 Potassium Phosphate 15 mmol in 250 mls @ 62.5 mls/hr 07/15/24 04:57 Pot Phos 15 Mmol In Ns 250 Ml IV 08/14/24 04:56 PRN PRN Phosphate <= 1mg/dL Sodium Phosphate 15 mmol/ 255 mls @ 62.5 mls/hr 07/15/24 04:57 Sodium Chloride IV 08/14/24 04:56 .Q4H5M PRN Phosphate <= 1mg/dL and K> than 5.3 Morphine Sulfate 1 mg 07/15/24 06:18 Morphine Sulf Inj 10 Mg/Ml Vial IVP 07/20/24 06:17 Q4HR PRN PAIN SCALE 7-10 (Severe Protocol Ondansetron HCl 4 mg 07/15/24 05:12 Ondansetron Inj 2 Mg/Ml Inj 2 Ml IVP 08/14/24 05:11 Q6HR PRN NAUSEA OR VOMITING Protocol Sodium Bicarbonate 50 ml 07/15/24 04:57 Sodium Bicarb Inj 8.4% Syr 50 Ml Syringe IV 08/14/24 04:56 Q4HR PRN For ph <= to 7.0 Plan 49-year-old woman with past medical history of hyperlipidemia, insulin diabetes mellitus type 1, who came to the ED due to chief complaint of hyperglycemia, nausea and vomiting. Per patient at the bedside stated that she has been having hyperglycemia the whole day at home and probably her insulin pump was not functioning well. Patient endorsed generalized pain 10/10 and headache, otherwise denied chest pain, cough, fever, dysuria or any other associated symptom different than the mentioned above. Bicarb 11.8, anion gap 23, glucose 445, lactic acid 4.1, beta-hydroxybutyrate 6.3, Pro-Wilbert 1.65, UA positive for ketones and glucose 4+, VBG pH 7.21 pCO2 36. Patient will be admitted to the ICU for further management of DKA. NEURO No active problems CVS Hypotension - Resolved after fluid resuscitation PULM No active problems GI/Hep Nausea DDx: DKA, viral gastroenteritis Rx: Ondansetron 4 Mg IV Q6 hourly as needed RENAL Acute kidney injury?prerenal versus renal DDx: Likely due to volume depletion Dx: Cr 1.4 ---> 1.2 Rx: Continue IVF RRx: Monitor renal panel Non-anion gap metabolic acidosis and anion gap metabolic acidosis DDx: RTA, pancreatic fistula Dx: pH 7.21, bicarb <10, anion gap 23, delta delta 0.7 Rx: ABG, urine electroyltes [CL, NA, CR, osmolality]. Patient currently has no abdominal pain, may consider abdominal imaging if occurs RRX: Follow up on ABG Moderate- severe Diabetic ketoacidosis Dx: pH 7.21, bicarb <10, anion gap 23, delta delta 0.7 Rx: Insulin infusion, LR/D5 IVF, replete electrolytes as necessary. RRX: Every 4 renal panel, Phos, magnesium. Lactic acidosis type B Dx: LA 4.1 --> 5.8 --> 2 Rx: 1L LR IVF bolus. Trend lactate RRX: F/U on lactate Pseudohyponatremia Dx: Corrected Na 137 Rx: Treatment of hyperglycemia HEME/ONC Microcytic anemia DDx: Iron deficiency, thalassemia, sideroblastic anemia Dx: Iron panel, hemoglobin electrophoresis and blood smear ordered RRX: Depending on etiology, will recommend/initiate treatment Thrombocytopenia DDx: Dilutional, ITP, essential Rx: Monitor CBC Leukocytosis DDx : DKA, stress Dx: WBC 18. 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 20 & 22G Right arm Central line: No Arterial line: No Muniz: NO Code status: FULL CODE Plan of care discussed with Attending Dr. Montaño and PGY 3 Dr. Joao Milan MD PGY 1 Disclaimer: This note was dictated by speech recognition. Minor errors in underwriting clerk may be present due to voice recognition software.
--- NOTE | 2024-07-15 11:32 | PC.SS ---
Initial assessment: Patient is a 49-year old female admitted to ICU for DKA. Patient's spouse, Srinivasan assisted with providing information as the patient is primarily Laotian speaking. Spouse confirmed the patient's demographic information. Spouse informs he resides in the home with the patient. Per spouse, he assists the patient with her ADL's at home when necessary. Spouse informs the patient has an insulin pump at home. Patient followed by [facility] in [place] for primary care, unknown current provider. Per spouse, the discharge plan is to return home when stable. Spouse informs he is able to transport the patient home at discharge. No current needs identified. Spouse is requesting to speak to financial counselor regarding some questions with patient's insurance, SS to notify staff. D/c plan: home Next of kin: spouse, Srinivasan [phone]
--- NOTE | 2024-07-15 11:44 | PC.SS ---
SS follow up: financial counselor ran patient's medical insurance, showing as HPE. Flood to contact patient's spouse regarding her insurance.
--- NOTE | 2024-07-15 12:24 | PD.INTPROG ---
Documentation for date of: 07/15/24 Subjective Subjective Interval history: This is a 49-year-old female who presented to the ER for nausea and vomiting. She has a history of type 1 diabetes. There was malfunction of her insulin pump. Upon presentation to the ER she was found to have DKA. She was started on an insulin drip and DKA protocol with IV fluids and brought to the ICU. This morning she states she feels better. Denies any current nausea, chest pain, shortness of breath or additional symptoms. She has good urinary output and is afebrile. Exam Vital Signs Temp Pulse Resp BP Pulse Ox O2 Del Method 98.4 F 81 22 H 89/47 L 96 Room Air 07/15/24 08:07/15/24 11:07/15/24 11:07/15/24 11:07/15/24 11:07/15/24 05:47 Narrative Exam General-no acute distress, awake alert and conversant however there is a language barrier and a sales and service engineer over the phone was utilized, normal body habitus HEENT-normocephalic, atraumatic, sclera icteric, oral mucosa is hydrated, EOMI Chest-lungs clear to auscultation bilaterally, heart rhythm rhythmic, no bradycardia murmurs auscultated times exam, no increased work of breathing Abdomen-soft, nontender, bowel sounds present, no rebound or guarding Extremities-no edema lower extremities, pulses palpable, no clubbing, no mottling, moves all 4 without any difficulties Objective - Dance Entertainer Labs 07/15/24 06:10 07/15/24 10:10 Labs: Laboratory Results - last 24 hr 07/15/24 07/15/24 07/15/24 03:10 03:28 06:10 WBC 20.0 H 18.0 H RBC 5.73 H 4.25 Hgb 12.7 9.7 L D Hct 38.6 28.3 L D MCV 67 L 67 L MCH 22.2 L 22.8 L MCHC 32.9 34.3 RDW Std Deviation 34.8 L 34.9 L Plt Count 155 136 L Neut % (Auto) 91 H 92 H Lymph % (Auto) 4 L 3 L [place] % (Auto) 5 4 Eos % (Auto) 0 0 Baso % (Auto) 0 0 Neut # (Auto) 18.2 H 16.6 H Lymph # (Auto) 0.7 L 0.6 L [place] # (Auto) 1.0 H 0.7 Eos # (Auto) 0.0 0.0 Baso # (Auto) 0.0 0.0 Immature Gran # (Auto) 0.12 H 0.11 H Absolute Nucleated RBC 0.00 0.00 Immature Gran % 1 H 1 H Nucleated RBC % 0 0 Smear Path Review Sent to Pathologist PT 10.7 INR 1.0 APTT 25.1 Puncture Site ABG pH ABG pCO2 ABG pO2 ABG HCO3 ABG O2 Saturation ABG Base Excess VBG pH 7.21 L VBG pCO2 36 VBG pO2 42 VBG O2 Sat (Maryuri) 69 L VBG Base Excess -12 L FiO2 Sodium 126 L 130 L Potassium 5.9 H 4.2 D Chloride 91 L 97 L Carbon Dioxide 11.8 L* < 10.0 L* Anion Gap 23 H 23 H BUN 24 H 25 H Creatinine 1.4 H 1.2 Estim Creat Clear Calc 38.6 L 45.0 L eGFR 46 L 55 L BUN/Creatinine Ratio 17 21 H Glucose 445 H* 401 H* Calculated Osmolality 276 282 Lactic Acid 4.1 H* 5.8 H* Calcium 9.7 8.6 Corrected Calcium 9.7 9.1 Phosphorus 5.3 H 4.3 Magnesium 2.2 1.7 Total Bilirubin 1.1 AST 45 H ALT 24 Alkaline Phosphatase 62 Troponin I < 0.002 Total Protein 8.2 Albumin 4.6 3.4 L D Globulin 3.6 H Albumin/Globulin Ratio 1.3 Lipase 29 Beta-Hydroxybutyrate/Acetoacetate 6.3 H Procalcitonin 1.65 H Ur Collection Type Clean Catch Urine Color Lt-Yellow Urine Clarity Clear Urine pH 5.5 Ur Specific [place] 1.016 Urine Protein Negative Urine Glucose (UA) 4+ A Urine Ketones 4+ A Urine Blood Negative Urine Nitrite Negative Urine Bilirubin Negative Urine Urobilinogen (Auto) Negative Ur Leukocyte Esterase Negative Urine RBC 4 H Urine WBC 1 Ur Squamous Epith Cells 2 Urine Bacteria None Hyaline Casts 1 Ur Culture Indicated? Not Indicated Urine HCG, Qual Negative 07/15/24 07/15/24 10:10 10:18 WBC RBC Hgb Hct MCV MCH MCHC RDW Std Deviation Plt Count Neut % (Auto) Lymph % (Auto) [place] % (Auto) Eos % (Auto) Baso % (Auto) Neut # (Auto) Lymph # (Auto) [place] # (Auto) Eos # (Auto) Baso # (Auto) Immature Gran # (Auto) Absolute Nucleated RBC Immature Gran % Nucleated RBC % Smear Path Review PT INR APTT Puncture Site Right Radial ABG pH 7.38 ABG pCO2 34 ABG pO2 90 ABG HCO3 20 ABG O2 Saturation 97 ABG Base Excess -5 L VBG pH VBG pCO2 VBG pO2 VBG O2 Sat (Maryuri) VBG Base Excess FiO2 21 Sodium 135 L Potassium 4.6 Chloride 104 Carbon Dioxide 20.6 Anion Gap 10 BUN 19 Creatinine 1.2 Estim Creat Clear Calc 47.8 L eGFR 55 L BUN/Creatinine Ratio 16 Glucose 258 H D Calculated Osmolality 281 Lactic Acid 2.0 Calcium 8.5 Corrected Calcium 9.1 Phosphorus 2.4 Magnesium 2.2 Total Bilirubin AST ALT Alkaline Phosphatase Troponin I Total Protein Albumin 3.3 L Globulin Albumin/Globulin Ratio Lipase Beta-Hydroxybutyrate/Acetoacetate Procalcitonin Ur Collection Type Urine Color Urine Clarity Urine pH Ur Specific [place] Urine Protein Urine Glucose (UA) Urine Ketones Urine Blood Urine Nitrite Urine Bilirubin Urine Urobilinogen (Auto) Ur Leukocyte Esterase Urine RBC Urine WBC Ur Squamous Epith Cells Urine Bacteria Hyaline Casts Ur Culture Indicated? 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 reactive in nature and 2/2 DKA, pts procal is elevated but no localizing source of infection noted Microcytic Anemia- iron panel and ? need for Hb electrophoresis , drop from 12 on arrival however has received 5lts of IVF and probably was hemoconcentrated on arrival Thrombocytopenia- minimal, monitor DVT proph- lovenox ID stable case d/w ICU team labs, imaging, records reviewed ~37ccmin required for eval, exam , review, intervention, discussion and formulation of POC for this ICU pt with DKA at high risk for further and ongoing decompensation Provider Notation Provider Notation: Although this document has been carefully reviewed, there may still be some phonetic and other typographical errors. These errors are purely grammatical due to imperfections in the software program and should not be construed in any way to compromise the substance of the patient's medical care during this visit. Thank you for the opportunity and privilege in assisting you with this patient's care and management.
[2024-07-15 13:39] LABS: Ferritin 1099 ng/mL (7.3-270.7); Iron 7 mcg/dL (50-170); Percent Iron Saturation 5 % (20-55); Total Iron Binding Capacity 120 mcg/dL (250-425); Unsaturated Iron Binding 113 (225-295)
[2024-07-15] MEDS: POT CHL ADDITIVE 20 MEQ in DEXTROSE 5%-LACTATED RINGERS 1,000 ML 250 MEQ IV (13:43)
[2024-07-15 14:08] LABS: Lactate (Lactic Acid) 1.7 mMol/L (0.4-2.0)
[2024-07-15 14:16] LABS: Chloride,Urine Random 29.6 mMol/L (55.0-125.0); Creatinine,Random Urine < 13 mg/dL (30-125); Potassium,Urine Random 11 mMol/L (12-62); Sodium,Urine Random 18.4 mMol/L (20.0-110.0)
[2024-07-15 14:35] LABS: Albumin, Serum 3.3 gm/dL (3.5-5.0); Anion Gap 10 (7-16); BUN/Creatinine Ratio 15 Ratio (12-20); Blood Urea Nitrogen 17 mg/dL (9-23); Calcium 8.5 mg/dL (8.3-10.6); Calcium (Corrected) 9.1 mg/dL (8.5-10.1); Carbon Dioxide 24.4 mMol/L (20.0-31.0); Chloride 108 mMol/L (98-107); Creatinine (Component) 1.1 mg/dL (0.6-1.3); Estimated Creatinine Clearance 52.2 mL/min (>60); Glucose 129 mg/dL (74-106); Osmolality,Calculated 286 (275-295); Phosphorous 1.4 mg/dL (2.4-5.1); Potassium 4.4 mMol/L (3.4-5.1); Sodium 142 mMol/L (136-145); eGFR > 60 See Note
--- NOTE | 2024-07-15 15:16 | PC.SS ---
SS update: patient receiving IV fluids. Pending cultures, continues in the ICU.
[2024-07-15] MEDS: INSULIN GLARGINE (Lantus) 5 UNIT/0.05 ML (PER 5 UNITS) 25 UNIT SC (16:01)
[2024-07-15] MEDS: NAPH,KPH MBDB 1 PACKET (1.5 GM) PO (16:07)
[2024-07-15] MEDS: INSULIN LISPRO (AdmeLOG) 1 UNIT/0.01 ML UNIT SC (17:11)
[2024-07-16] VITALS (7 sets, daily range): BP systolic 92–144; BP diastolic 57–84; PULSE 61–91; RESP 14–21; TEMP 36.2–36.9; O2SAT 96–97
[2024-07-16 05:55] LABS: Basophils % (Auto) 0 % (0-2.5); Eosinophils # (Auto) 0.1 Thou/mm3 (0.0-0.5); Eosinophils % (Auto) 1 % (0-10); Hematocrit 27.8 % (36.0-46.0); Hemoglobin 9.4 g/dL (12.0-16.0); Immature Granulocytes % (Auto) 0 % (0-0); Immature Granulocytes Auto 0.05 Thou/mm3 (0.00-0.00); Lymphocytes # (Auto) 2.1 Thou/mm3 (1.0-4.8); Lymphocytes % (Auto) 16 % (10-50); Mean Corpuscular HGB Conc 33.8 g/dl (31.0-37.0); Mean Corpuscular Hemoglobin 22.9 pg (25.0-35.0); Mean Corpuscular Volume 68 fL (80-100); Monocytes % (Auto) 7 % (0-12); Neutrophils # (Auto) 9.8 Thou/mm3 (1.8-7.7); Neutrophils % (Auto) 75 % (37-80); Nucleated Red Blood Cell % 0 /100 WBC (0); Platelet Count 144 Thou/mm3 (140-440); RDW Standard Deviation 33.9 fL (36.4-46.3); Red Blood Count 4.11 Miln/mm3 (4.00-5.20); White Blood Count 13.1 Thou/mm3 (3.6-11.0)
[2024-07-16 06:22] LABS: Glucose Estimated Average 146 mg/dL (80-131); Hemoglobin A1C 6.7 % Hgb (4.8-6.0)
[2024-07-16 06:31] LABS: Alanine Aminotransferase 16 U/L (10-49); Albumin, Serum 3.1 gm/dL (3.5-5.0); Albumin/Globulin Ratio 1.4 (1.2-2.2); Alkaline Phosphatase 41 U/L (46-116); Anion Gap 9 (7-16); BUN/Creatinine Ratio 14 Ratio (12-20); Bilirubin,Total 0.5 mg/dL (0.3-1.2); Blood Urea Nitrogen 15 mg/dL (9-23); Calcium 8.7 mg/dL (8.3-10.6); Calcium (Corrected) 9.4 mg/dL (8.5-10.1); Carbon Dioxide 26.4 mMol/L (20.0-31.0); Chloride 104 mMol/L (98-107); Creatinine (Component) 1.1 mg/dL (0.6-1.3); Estimated Creatinine Clearance 52.2 mL/min (>60); Globulin 2.2 gm/dL (2.3-3.5); Glucose 115 mg/dL (74-106); Osmolality,Calculated 279 (275-295); Potassium 3.8 mMol/L (3.4-5.1); Sodium 139 mMol/L (136-145); Total Protein 5.3 gm/dL (5.7-8.2); eGFR > 60 See Note
[2024-07-16] MEDS: ENOXAPARIN SOD INJ 40 MG/0.4 ML SYRINGE SC (08:32)
--- NOTE | 2024-07-16 14:20 | ESPR_ITS ---
<Statement entered by Mars Gama MD - 07/17/24 12:04> I discussed with and supervised the engineer internship physician involved in the care of this patient. Patient assessment and plan was discussed with entire medicine team, including my attending. I agree with the assessment and plan as documented by engineer internship doctor. Patient care was discussed with my attending physician Dr. Belinda Gama, PGY-2 Documentation for date of: 07/16/24 Subjective Subjective Interval history: Patient was seen and examined by the bedside. Overnight patient had a BS of 65, which resolved after juice intake. Will decrease Glargine to 20U sc. Spoke with patient and patient's , they reports that her pump is working and she has all the supplies a home. Anticipate discharge in 24 hours. Exam Vital Signs Temp Pulse Resp BP Pulse Ox O2 Del Method 97.4 F 65 16 116/72 97 Room Air 07/16/24 11:52 07/16/24 11:52 07/16/24 11:52 07/16/24 11:52 07/16/24 11:52 07/16/24 11:52 Narrative Exam Physical Exam General: Awake and in no acute distress. Conversational and non-toxic appearing. HEENT: Normocephalic, atraumatic, mucous membranes moist. Heart: Regular rate and rhythm, no murmurs. Lungs: Clear to auscultation with no wheezing or crackles. Abdomen: Soft, nondistended, nontender, positive bowel sounds. ?No guarding or rebound tenderness. Neurologic: Alert and oriented x3, no gross neurological deficit, and patient able to move all 4 extremities. Extremities: No edema. Skin: No rash or ecchymoses. Objective Labs 07/17/24 05:09 07/17/24 05:09 Labs: Laboratory Results - last 24 hr 07/15/24 07/16/24 14:00 05:05 WBC 13.1 H RBC 4.11 Hgb 9.4 L Hct 27.8 L MCV 68 L MCH 22.9 L MCHC 33.8 RDW Std Deviation 33.9 L Plt Count 144 Neut % (Auto) 75 Lymph % (Auto) 16 [place] % (Auto) 7 Eos % (Auto) 1 Baso % (Auto) 0 Neut # (Auto) 9.8 H Lymph # (Auto) 2.1 [place] # (Auto) 1.0 H Eos # (Auto) 0.1 Baso # (Auto) 0.0 Immature Gran # (Auto) 0.05 H Absolute Nucleated RBC 0.00 Immature Gran % 0 Nucleated RBC % 0 Sodium 142 139 Potassium 4.4 3.8 D Chloride 108 H 104 Carbon Dioxide 24.4 26.4 Anion Gap 10 9 BUN 17 15 Creatinine 1.1 1.1 Estim Creat Clear Calc 52.2 L 52.2 L eGFR > 60 > 60 BUN/Creatinine Ratio 15 14 Glucose 129 H D [address] Glu mg/dL 146 H Hemoglobin A1c 6.7 H Calculated Osmolality 286 279 Calcium 8.5 8.7 Corrected Calcium 9.1 9.4 Phosphorus 1.4 L Magnesium 2.0 Total Bilirubin 0.5 D ALT 16 Alkaline Phosphatase 41 L D Total Protein 5.3 L Albumin 3.3 L 3.1 L Globulin 2.2 L Albumin/Globulin Ratio 1.4 ABG Interpretation ABG results: 07/15/24 07/15/24 03:10 10:18 ABG pH 7.38 ABG pCO2 34 ABG pO2 90 ABG HCO3 20 ABG O2 Saturation 97 ABG Base Excess -5 L VBG pH 7.21 L VBG pCO2 36 VBG pO2 42 VBG Base Excess -12 L Quality Measures Quality Measures VTE prophylaxis Assessment & Plan Assessment Current Active Medications: Generic Name Dose Route Start Last Admin Trade Name Freq PRN Reason Stop Dose Admin Acetaminophen 650 mg 07/15/24 04:57 Acetaminophen 325 Mg Tablet PO 08/14/24 04:56 Q4HR PRN PAIN SCALE 1-3 (mild Hydrocodone Bitart/Acetaminophen 1 tab 07/15/24 05:24 07/15/24 05:37 Hydrocodone/Apap 5/325 Tablet PO 07/20/24 05:23 1 tab Q6HR PRN Administration PAIN SCALE 4-10(Mod-Sev Protocol Dextrose 25 ml 07/15/24 04:57 Dextrose 50%-Water Inj 50 Ml Syringe IV PRNMRX1 PRN Blood Sugar - Low Enoxaparin Sodium 40 mg 07/16/24 09:00 07/16/24 08:32 Enoxaparin Sod Inj 40 Mg/0.4 Ml Syringe SC 07/30/24 08:59 40 mg QDAY ANDREW Administration Glucagon 1 mg 07/15/24 15:48 Glucagon Inj 1 Mg Vial IM Q15MIN PRN BG <70, and no IV access Insulin Human Lispro 0 unit 07/15/24 17:00 07/16/24 11:23 Insulin Lispro (Admelog) 1 Unit/0.01 Ml Unit SC 08/14/24 16:59 Not Given AC ANDREW Protocol Morphine Sulfate 1 mg 07/15/24 18:43 Morphine Sulf Inj 10 Mg/Ml Vial IVP 07/20/24 06:17 Q4HR PRN BREAKTHROUGH PAIN 7-10 Ondansetron HCl 4 mg 07/15/24 05:12 Ondansetron Inj 2 Mg/Ml Inj 2 Ml IVP 08/14/24 05:11 Q6HR PRN NAUSEA OR VOMITING Protocol Plan The patient is a 49-year-old [place] speaking woman, with past medical history of hyperlipidemia, insulin diabetes mellitus type 1, who came to the ED due to chief complaint of hyperglycemia, nausea and vomiting. #DKA, resolved #Type I diabetes mellitus Plan: - glargine 20 U HS - Insulin sliding scale #Microcytic anemia Plan: - Hemoglobin electrophresis ordered - Follow-up outpatient #JAMES, resolved #Hypotension, resolved Health maintenance: FEN: carbohydrate consistent DVT prophylaxis: lovenox 40 sc qday GI prophylaxis: none Dispo:medsurg CODE STATUS: Full code Plan of care discussed with attending Dr. Trevino, PGY-[address] Gama. Pat Roy MD, PGY 1. Attending Provider Attestation/Addendum Thuy Almanzar DO, attest that I was physically present for the [place] portions of the service and evaluated the patient with the resident and I reviewed and discussed the case with the resident and agree with the resident's findings and plans of care as documented above Patient seen and evaluated this AM. Patient states she had dizziness and inability to sleep due to hypoglycemia. Will decrease glargine to 15u qHS. states that that he has supplies for patient's insulin pump which is reportedly broken. Will keep patient overnight and titrate her home insulin dosing for discharge in the event that her insulin pump again does not work. Patient's states that she has had 2 episodes of DKA since being placed on insulin pump. She follows up with endocrinology in [place]. Continue with sliding scale otherwise. Anticipate discharge within the next 24 hours.
[2024-07-16] MEDS: INSULIN LISPRO (AdmeLOG) 1 UNIT/0.01 ML UNIT SC (16:46)
[2024-07-16] MEDS: INSULIN GLARGINE (Lantus) 5 UNIT/0.05 ML (PER 5 UNITS) 15 UNIT SC (21:53)
[2024-07-17] VITALS: BP 156/82; PULSE 53; PULSE 56; RESP 21; TEMP 36.5; O2SAT 97
[2024-07-17 04:00] VITALS: BP 116/72; PULSE 45; PULSE 52; RESP 12; TEMP 36.8; O2SAT 98
[2024-07-17 06:01] LABS: Basophils % (Auto) 1 % (0-2.5); Eosinophils # (Auto) 0.2 Thou/mm3 (0.0-0.5); Eosinophils % (Auto) 3 % (0-10); Hematocrit 28.4 % (36.0-46.0); Hemoglobin 9.7 g/dL (12.0-16.0); Immature Granulocytes % (Auto) 0 % (0-0); Immature Granulocytes Auto 0.01 Thou/mm3 (0.00-0.00); Lymphocytes # (Auto) 1.7 Thou/mm3 (1.0-4.8); Lymphocytes % (Auto) 28 % (10-50); Mean Corpuscular HGB Conc 34.2 g/dl (31.0-37.0); Mean Corpuscular Hemoglobin 22.6 pg (25.0-35.0); Mean Corpuscular Volume 66 fL (80-100); Monocytes # (Auto) 0.5 Thou/mm3 (0.0-0.8); Monocytes % (Auto) 8 % (0-12); Neutrophils # (Auto) 3.6 Thou/mm3 (1.8-7.7); Neutrophils % (Auto) 60 % (37-80); Nucleated Red Blood Cell % 0 /100 WBC (0); Platelet Count 135 Thou/mm3 (140-440); Red Blood Count 4.29 Miln/mm3 (4.00-5.20)
[2024-07-17] MEDS: INSULIN LISPRO (AdmeLOG) 1 UNIT/0.01 ML UNIT SC (07:05)
[2024-07-17 07:11] LABS: Alanine Aminotransferase 19 U/L (10-49); Albumin, Serum 3.4 gm/dL (3.5-5.0); Albumin/Globulin Ratio 1.3 (1.2-2.2); Alkaline Phosphatase 46 U/L (46-116); Anion Gap 8 (7-16); BUN/Creatinine Ratio 13 Ratio (12-20); Bilirubin,Total 0.8 mg/dL (0.3-1.2); Blood Urea Nitrogen 12 mg/dL (9-23); Calcium (Corrected) 9.5 mg/dL (8.5-10.1); Carbon Dioxide 28.6 mMol/L (20.0-31.0); Chloride 106 mMol/L (98-107); Creatinine (Component) 0.9 mg/dL (0.6-1.3); Estimated Creatinine Clearance 63.8 mL/min (>60); Globulin 2.7 gm/dL (2.3-3.5); Glucose 186 mg/dL (74-106); Osmolality,Calculated 289 (275-295); Potassium 3.9 mMol/L (3.4-5.1); Sodium 143 mMol/L (136-145); Total Protein 6.1 gm/dL (5.7-8.2); eGFR > 60 See Note
[2024-07-17 07:42] VITALS: BP 116/71; PULSE 67; RESP 15; TEMP 36.2; O2SAT 97
[2024-07-17 08:00] VITALS: PULSE 78
[2024-07-17] MEDS: ENOXAPARIN SOD INJ 40 MG/0.4 ML SYRINGE SC (08:00)
--- NOTE | 2024-07-17 13:35 | ESDS_ITS ---
<Statement entered by Thuy Trevino DO - 07/18/24 07:21> I, Thuy Trevino DO, attest that I was physically present for the goodwin portions of the service and evaluated the patient with the resident and I reviewed and discussed the case with the resident and agree with the resident's findings and plans of care as documented above Planned Discharge Date 07/17/24 DS: Providers Provider Date of admission: 07/15/24 04:57 Primary care physician: Physician No Primary/Family Admitting Provider: Mati Castro MD Attending Provider on Admission: Cheryl Montaño MD Consults: 07/15/24 05:01 Referral Registered Dietitian Routine Comment: Attending Provider on DC: aPt Roy MD Discharging Provider: Pat Roy MD DS: Diagnosis Problem List Completed Was Problem List Reviewed/Reconciled?: Yes Hospital Course Hospital Course Hospital course: The patient is a 49-year-old Urdu speaking female with a previous medical history of hyperlipidemia, type 1 diabetes who came to the ED with complaints of nausea, vomiting and high blood sugar. She is using insulin pump at home. She denies antecedent infections or any provoking factors, denies pump malfunctions. Reports that she is following up with specialist at [place] and regarding diabetes and her pump and has all supplies at home. In the ED she was found to be hemodynamically stable, labs showed leukocytosis, high anion gap, glucose of 445, lactic acid 4.1, BHB 6.3, Pro-Wilbert 1.65, UA was positive for ketones and glucose 4+, VBG pH 7.21, pCO2 36, 242 PO2. Patient was admitted to the ICU for management of DKA. Her condition has improved, she was able to tolerate oral diet, her anion gap has closed, she transitioned to subcutaneous insulin. After being downgraded to the ICU she developed mild hypoglycemia without symptoms, her insulin regimen was adjusted. Patient was seen and examined by the bedside and was medically cleared for discharge on 07/17/2024. Hospital diagnoses: #DKA, resolved #Type I diabetes mellitus #Microcytic anemia #JAMES, resolved #Hypotension, resolved Discharge recommendations: - Follow-up with your PCP in 1 week - Follow-up with your PCP to find out about the results of hemoglobin test - Continue using your insulin pump - In case your insulin pump is not working, switch to insulin injections: 1) Inject Glargine 15 units every day before sleep 2) Inject Lispro with meals according to the sliding scale: 150-200 mg/dL - 2 units 201-250 mg/dL - 3 units 251-300 mg/dL - 4 units Greater than 300 mg/dL -5 units - If your conditions worsens, come to the ED or call 911 Plan of care discussed with attending Dr. Trevino. Pat Roy MD, PGY 1. Time Spent with Patient Time attestation: Total time spent providing and/or coordinating discharge services: Time spent: Greater than 30 minutes Exam Vital Signs Temp Pulse Resp BP Pulse Ox O2 Del Method 97.1 F 78 15 116/71 97 Room Air 07/17/24 07:42 07/17/24 08:00 07/17/24 07:42 07/17/24 07:42 07/17/24 07:42 07/17/24 04:00 Narrative Exam Physical Exam General: Awake and in no acute distress. Conversational and non-toxic appearing. HEENT: Normocephalic, atraumatic, mucous membranes moist. Heart: Regular rate and rhythm, no murmurs. Lungs: Clear to auscultation with no wheezing or crackles. Abdomen: Soft, nondistended, nontender, positive bowel sounds. ?No guarding or rebound tenderness. Neurologic: Alert and oriented x3, no gross neurological deficit, and patient able to move all 4 extremities. Extremities: No edema. Skin: No rash or ecchymoses. Discharge Plan Plan Patient Disposition: HOME (Self Care) Patient condition on transfer: Stable Care Plan Goals: - Follow-up with your PCP in 1 week - Follow-up with your PCP to find out about the results of hemoglobin test - Continue using your insulin pump - In case your insulin pump is not working, switch to insulin injections: 1) Inject Glargine 15 units every day before sleep 2) Inject Lispro with meals according to the sliding scale: * 150-200 mg/dL - 2 units * 201-250 mg/dL - 3 units * 251-300 mg/dL - 4 units * Greater than 300 mg/dL -5 units - If your conditions worsens, come to the ED or call 911 Prescriptions/Referrals Prescriptions/Med Rec: New insulin glargine 100 unit/mL (3 mL) insulin pen 15 unit subcut QPM Qty: 15 2RF Rx Instructions: Inject 15 unit every day before sleep insulin lispro 100 unit/mL insulin pen 1 sliding scale dose subcut USEASDIRECTD Qty: 15 0RF Rx Instructions: Inject according to the sliding scale: 150-200 mg/dL - 2 units 201-250 mg/dL - 3 units 251-300 mg/dL - 4 units Greater than 300 mg/dL - 5 units Continued (DME) FreeStyle Romi 3 Sensor Device See Rx Instructions .Route Qty: 1 6RF Rx Instructions: As directed (DME) pen needle, diabetic, safety 32 gauge x 5/32 needle See Rx Instructions .Route Qty: 100 0RF Rx Instructions: As directed Discontinued Januvia 50 mg tablet 50 mg PO QDAY insulin glargine [Lantus Solostar U-100 Insulin] 100 unit/mL (3 mL) insulin pen 10 unit SUBCUT QPM Qty: 15 0RF insulin lispro [Humalog KwikPen Insulin] 100 unit/mL insulin pen 5 unit subcut TIDWM 30 Days Qty: 15 0RF No Action atorvastatin 20 mg tablet 20 mg PO HS (DME) FreeStyle Romi 3 [place] Misc See Rx Instructions .Route Qty: 1 0RF Rx Instructions: As directed Referrals: No Primary/Family,Physician [Primary Care Provider] - Patient/Caregiver Discharge Instructions Education Materials: CGM, High Blood Sugar (Hyperglycemia), Diabetic Ketoacidosis Print Language: Urdu Stand Alone Forms: Janna Award Info., Patient Portal Info Letter Discharge Order Discharge Orders: Discharge (Routine); Ordered 07/17/24 Ordered By: Pat Roy Quality Discharge Quality Measures VTE prophylaxis
[2024-07-20 15:35] LABS: Hemoglobinopathy Hematocrit 32.8 % (35.0-45.0); Hemoglobinopathy Hemoglobin 9.8 g/dL (11.7-15.5); Hemoglobinopathy Hemoglobin A2 3.7 % (2.0-3.2); Hemoglobinopathy Hemoglobin E 16.1; Hemoglobinopathy MCH 22.4 pg (27.0-33.0); Hemoglobinopathy MCV 75.1 fL (80.0-100.0); Hemoglobinopathy Red Blood Cnt 4.37 Million/uL (3.80-5.10)
[2024-07-21 06:33] LABS: Hemoglobinopathy Hemoglobin A 80.2 %; Hemoglobinopathy RDW 14.7 % (11.0-15.0)
[2024-07-22 06:57] LABS: Osmolality, Urine* 125 mOsm/kg (50-1200)
== END 2024-07-17 10:17 | disposition home or self-care (01) | DRG 420 ==
LOC: SERX 04:21 → SERHOLD 05:46 → S2SX 06:26 → S3SX 19:47
PROVIDERS: Physician Assistant; Student in an Organized Health Care Education/Training Program; Admitting Provider Student in an Organized Health Care Education/Training Program; Emergency Provider Emergency Medicine; Visit Provider Internal Medicine
DX: E10.10 Type 1 diabetes mellitus with ketoacidosis without coma (principal); E78.5 Hyperlipidemia, unspecified; I95.9 Hypotension, unspecified; R00.0 Tachycardia, unspecified; N17.9 Acute kidney failure, unspecified; E86.0 Dehydration; D64.9 Anemia, unspecified; D69.6 Thrombocytopenia, unspecified; D50.9 Iron deficiency anemia, unspecified; D72.829 Elevated white blood cell count, unspecified; E10.649 Type 1 diabetes mellitus with hypoglycemia without coma; E87.1 Hypo-osmolality and hyponatremia; T85.614A Breakdown (mechanical) of insulin pump, initial encounter; Y74.2 Prosthetic and other implants, materials and accessory general hospital and personal-use devices associated with adverse incidents; Z96.41 Presence of insulin pump (external) (internal)
CPT/HCPCS: 36415; 36600; 71045; 80053; 80069; 81001; 81025; 82010; 82436; 82570; 82728; 82803; 83020; 83036; 83540; 83550; 83605; 83690; 83735; 83935; 84100; 84133; 84145; 84300; 84484; 85014; 85018; 85025; 85041; 85610; 85730; 87040; 87081; 93005; 93225; 96360; 96361; 96374; 99285; J1650; J1815; J2405; J3475; J3480; J7120; J7121; A9270